=== PATIENT | female | born 1960 | race Caucasian/White ===

== ENCOUNTER → 2018-09-26 | Outpatient (CLI) | payer BC | END | disposition home or self-care (01) | LOC: PLD 10:54 → LAB SHORT 10:54 | DX: C44.41 Basal cell carcinoma of skin of scalp and neck (principal) | CPT/HCPCS: 88305 ==

== ENCOUNTER → 2018-10-12 | Outpatient (CLI) | payer BC | END | disposition home or self-care (01) | LOC: PLD 14:47 → LAB SHORT 14:47 | DX: C44.41 Basal cell carcinoma of skin of scalp and neck (principal) | CPT/HCPCS: 88305 ==

== ENCOUNTER 2020-07-01 07:28 | Day surgery (SDC) | payer BC | END 2020-07-01 23:02 | disposition home or self-care (01) | LOC: MOI US 07:28 → MOI MAM 08:00 → MOI US 23:02 | DX: N60.11 Diffuse cystic mastopathy of right breast (principal); N60.21 Fibroadenosis of right breast | CPT/HCPCS: 19083; 77065; 88305; 88342; A4648 ==

== ENCOUNTER → 2020-11-06 | Outpatient (CLI) | payer BC | END | disposition home or self-care (01) | LOC: LAB SHORT 11:14 → LAB 11:14 | DX: D22.39 Melanocytic nevi of other parts of face (principal) | CPT/HCPCS: 88305 ==